=== PATIENT | male | born 1960 | race Caucasian/White ===

== ENCOUNTER → 2022-02-26 12:03 | Outpatient (CLI) | payer OTHER, MEDICAID, SELFPAY ==
[2022-02-28 10:56] LABS: PSA Free % 20.8 % (.); PSA, Total 4.9 ng/mL (0.0-4.0)
== END ==
PROVIDERS: PCP Family Medicine; Referring Provider Urology; Visit Provider Urology
DX: R97.20 Elevated prostate specific antigen [PSA] (principal); R35.1 Nocturia; R39.15 Urgency of urination
CPT/HCPCS: 36415; 51798; 81002; 84153; 84154; 99213

== ENCOUNTER → 2022-03-18 12:39 | Outpatient (CLI) | payer OTHER, MEDICAID, SELFPAY ==
--- NOTE | 2022-03-18 12:41 | DI.MRI.S_ITS ---
PROCEDURE: MR PELIS WO/W CON INDICATIONS: Rule out prostate cancer TECHNIQUE: Coronal HASTE, axial T1 FSE with fat saturation, 3-plane nonbreath-hold T2 FSE. After the administration of contrast, dynamic axial, delayed axial and coronal VIBE or 2-D FLASH with fat saturation through the pelvis. Optional diffusion weighted imaging and ADC may be performed. COMPARISON: None. FINDINGS: Image quality: Diffusion weighted and dynamic contrast enhanced images are diagnostic. Prostate: Gland size is 5.5 x 4.6 x 3.6 cm; ellipsoid gland volume is 46 mL. Median lobe hypertrophy. No significant foci of intrinsic T1 hyperintensity to suggest hemorrhage. Multiple BPH nodules. Lesion size(s): Lesion 1: 1.2 x 0.7 cm, (03/31) Lesion 2: 0.4 x 0.4, (03/31) Lesion 3: 1 x 0.7 cm, (04/03) Lesion location(s) (sector): Lesion 1: Left mid gland transitional zone Lesion 2: Left mid gland peripheral zone Lesion 3: Right mid gland peripheral zone Lesion description: Lesion 1: Oval Lesion 2: Oval Lesion 3: Lenticular T2 weighted imaging (T2WI) morphology score: Lesion 1: 3 Lesion 2: 3 Lesion 3: 3 Diffusion weighted imaging (DWI) morphology score: Lesion 1: 2 Lesion 2: 3 Dynamic contrast enhancement (DCE): Lesion 1: Present Lesion 2: Present Lesion 3: Absent Lesion PI-RADS score: Lesion 1: PI-RADS 3 Lesion 2: PI-RADS 2 Lesion 3: PI-RADS 3 Genitourinary system: Bladder wall thickness is normal. Distal ureters are non distended. Bowel and peritoneum: No pathologic free pelvic fluid. Inferior colon and small bowel loops are normal in caliber. Nodes and vessels: No pelvic or inguinal adenopathy by size criteria. Iliac vessels are normal in caliber. Soft tissues: No inguinal hernias. Bones: Marrow demonstrates normal overall signal, without lesions to suggest metastases. IMPRESSION: 1. Prostatomegaly. Multiple BPH nodules. Median lobe hypertrophy. 2. Left mid gland transitional zone observation measuring 1.2 cm. PI-RADS 3. 3. Right mid gland peripheral zone observation measuring 1 cm. PI-RADS 3. Dictated by: Andrew Hanson M.D. on 03/18/2022 at 14:44 Approved by: Andrew Hanson M.D. on 03/18/2022 at 15:02
== END ==
PROVIDERS: PCP Family Medicine; Referring Provider Urology; Visit Provider Urology
DX: N40.2 Nodular prostate without lower urinary tract symptoms (principal); R97.20 Elevated prostate specific antigen [PSA]
CPT/HCPCS: 72197

== ENCOUNTER → 2022-04-05 14:27 | Outpatient (CLI) | payer OTHER, MEDICAID, SELFPAY ==
[2022-04-05 17:50] LABS: Prostate Specific Antigen 4.59 ng/mL (0.10-4.00)
[2022-04-06 06:17] LABS: PSA Free % 20.6 % (.)
== END ==
PROVIDERS: PCP Family Medicine; Referring Provider Urology; Visit Provider Urology
DX: R97.20 Elevated prostate specific antigen [PSA] (principal)
CPT/HCPCS: 36415; 84153; 84154

== ENCOUNTER → 2023-02-25 10:04 | Outpatient (CLI) | payer OTHER, MEDICAID, SELFPAY ==
[2023-03-01 11:14] LABS: PSA, Total 4.4 ng/mL (0.0-4.0)
== END ==
PROVIDERS: PCP Family Medicine; Referring Provider Urology; Visit Provider Urology
DX: N39.43 Post-void dribbling (principal); R97.20 Elevated prostate specific antigen [PSA]; R39.9 Unspecified symptoms and signs involving the genitourinary system; R39.15 Urgency of urination
CPT/HCPCS: 36415; 51798; 81002; 84153; 84154; 99213